=== PATIENT | male | born 1950 | race Caucasian/White ===

== ENCOUNTER 2020-05-24 02:39 | Emergency (ER) | payer MEDICARE ==
[2020-05-24 03:10] LABS: #Basophils 0.1 thou/uL (0.0-0.2); #Eosinphils 0.1 thou/uL (0.0-0.7); #Lymphocytes 0.7 thou/uL (1.20-3.40); #Monocytes 0.5 thou/uL (0.11-0.59); #Neutrophils 5.5 thou/uL (1.40-6.50); %Basophils 0.9 % (0.0-1.0); %Eosinophils 1.2 % (0.0-10.0); %Lymphocytes 10.5 % (21.0-51.0); %Monocytes 7.5 % (0.0-10.0); Hemoglobin 15.7 g/dL (14.0-18.0); Mean Corpuscular HGB CONC 33.8 g/dL (32.0-36.0); Mean Corpuscular Hemoglobin 33.2 pg (27.0-31.0); Mean Corpuscular Volume 98.2 fL (78.0-98.0); Mean Platelet Volume 7.2 fL (7.4-10.4); Platelet Count 248 thou/uL (130-400); RBC Distribution Width 12.2 % (11.5-14.5); Red Blood Cell (RBC) Count 4.74 mill/uL (4.70-6.10); White Blood Cell (WBC) Count 6.8 thou/uL (4.8-10.8)
[2020-05-24 03:29] LABS: ALT (SGPT) 9 U/L (8-55); AST (SGOT) 17 U/L (5-34); Albumin 4.2 g/dL (3.4-4.8); Alkaline Phosphatase 56 U/L (40-110); Anion Gap 17 mmol/L (10-20); BUN (Urea Nitrogen) 14 mg/dL (8.4-25.7); Bilirubin, Total 0.3 mg/dL (0.2-1.2); Calc. Creatinine Clearance 0 mL/min (70-130); Calcium 9.5 mg/dL (7.8-10.44); Carbon Dioxide 24 mmol/L (23-31); Chloride 102 mmol/L (98-107); Estimated GFR-MDRD 87; Globulin 2.6 g/dL (2.4-3.5); Glucose 114 mg/dL (83-110); Protein, Total 6.8 g/dL (5.8-8.1); Sodium 139 mmol/L (136-145)
--- NOTE | 2020-05-24 09:12 | CT ---
PRELIMINARY REPORT/[facility]/EMERGENCY AFTER HOURS PROCEDURE: EXAM: CT Abdomen and Pelvis with Intravenous Contrast CLINICAL HISTORY: 70-year-old male presents ED for evaluation of acute worsening of swelling and pain to a known right inguinal hernia that is been present for the last several years. Patient states that he noticed that his swelling was increasing starting 4 days ago but pain became severe acutely tonight and awoke him from sleep. Patient has seen general surgery for his hernia but no surgery was recommended at that ti sd (several years prior). PT STATES HAVING FOOD POISONING THE OTHER DAY AND THINKS VOMITING MAY HAVE IRRIATED THE HERNIA TECHNIQUE: Axial computed tomography images of the abdomen and pelvis with intravenous contrast. CONTRAST: With; ISOVUE 370, 90ML COMPARISON: None provided. FINDINGS: LUNG BASES: No basilar airspace consolidation or pleural effusion. LIVER: Unremarkable. GALLBLADDER AND BILE DUCTS: Unremarkable. No calcified stone. No ductal dilation. PANCREAS: Unremarkable. SPLEEN: Unremarkable. ADRENAL GLANDS: Unremarkable. KIDNEYS, URETERS, AND BLADDER: Unremarkable. No hydronephrosis or nephrolithiasis. No ureteral or bladder calculi. STOMACH AND BOWEL: Large right inguinal hernia containing the cecum and terminal ileum. The distal ileum is fluid-filled and measures up to 2.6 cm however there is no significant proximal dilatation to the distal ileum. N o definite obstruction at time of examination. Mild mural thickening of the proximal ascending colon which is under distended, limiting evaluation. APPENDIX: No CT evidence for appendicitis. PERITONEUM: No free fluid. No free air. LYMPH NODES: No lymphadenopathy. REPRODUCTIVE: Unremarkable as visualized. VASCULATURE: Scattered atherosclerotic calcifications of the aorta. BONES: Grade 1 anterolisthesis of L5 on S1 with bilateral L5 spondylolysis. Mild degenerative changes of the remainder of the lumbar spine. ABDOMINAL WALL AND SOFT TISSUES: See above. Small left fat-containing hernia. IMPRESSION: Large right inguinal hernia containing the cecum and terminal ileum. The distal ileum is fluid-filled and measures up to 2.6 cm however there is no significant proximal dilatation to the distal ileum. N o definite obstruction at time of examination. Mild mural thickening of the proximal ascending colon which is under distended, limiting evaluation. ELECTRONICALLY SIGNED BY: Nyla Bob MD May 24, 2020 3:55:27 AM CDT This report is intended for review by the ordering physician only, in accordance of law. If you recei ve this report in error, please call [facility] at [phone]. FINAL REPORT: CT ABDOMEN AND PELVIS WITH CONTRAST: I agree with the preliminary report provided. There is a right inguinal hernia containing the cecum and portions of the ascending colon with mild wall thickening involving the ascending colon and cecum which may reflect sequelae of mild strangulation. There is no overt upstream dilatation of the smal l bowel. Would recommend surgical consultation. There are bilateral hydroceles within the scrotal s ac. There are calcifications with a vas deferens likely seen in diabetic males. There are bilateral pars defects at L5 and grade I anterolisthesis. Other chronic findings as above. POS: BH
[2020-05-24] MEDS ORDERED: Iopamidol 370 76% 100 ML VIAL ONE (16:09)
== END 2020-05-24 04:30 | disposition home or self-care (01) ==
LOC: ERS 02:39
DX: K40.90 Unilateral inguinal hernia, without obstruction or gangrene, not specified as recurrent (principal); Z87.891 Personal history of nicotine dependence
CPT/HCPCS: 36415; 74177; 80053; 83605; 85025; Q9967

== ENCOUNTER 2020-06-02 05:56 | Outpatient (CLI) | payer MEDICARE, OTHER ==
[2020-06-03 14:46] LABS: SARS-CoV-2 MS2 Positive; SARS-CoV-2 N Gene Negative; SARS-CoV-2 S Gene Negative; SARS-CoV-2 by NAA Not Detected (NotDetected); SARS-CoV-2 orf1ab Negative
--- NOTE | 2020-06-05 15:37 | EKG ---
Test Reason : Blood Pressure : / mmHG Vent. Rate : 059 BPM Atrial Rate : 059 BPM P-R Int : 152 ms QRS Dur : 124 ms QT Int : 428 ms P-R-T Axes : 066 -17 038 degrees QTc Int : 423 ms Sinus bradycardia Right bundle branch block Abnormal ECG No previous ECGs available Confirmed by ZACHERY MEADOWS M.D. ([id number]) on 06/05/2020 3:37:28 PM Referred By: KENDALL Confirmed By:ZACHERY MEADOWS M.D.
== END 2020-06-02 05:57 | disposition home or self-care (01) ==
LOC: LABBT 05:56
PROVIDERS: ATTEND Specialist
DX: Z01.818 Encounter for other preprocedural examination (principal); K40.90 Unilateral inguinal hernia, without obstruction or gangrene, not specified as recurrent; Z20.828 Contact with and (suspected) exposure to other viral communicable diseases
CPT/HCPCS: 93005; U0003; 87635; 93010

== ENCOUNTER 2020-06-07 07:05 | Day surgery (SDC) | payer MEDICARE ==
[2020-06-02 15:51] VITALS: BMI 24.3
--- NOTE | 2020-06-06 06:45 | HP ---
HISTORY OF PRESENT ILLNESS: Baljeet Hanna, a 70-year-old male patient, who lives in [facility]. Recently lost his to both breast and lung cancer. 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 He has experienced a right inguinal hernia over the past 2 to 3 years. He recently presented to the emergency room and had a CAT scan that was unremarkable except for this right inguinal hernia. Laboratories are normal. EKG was not performed. SOCIAL HISTORY: Tobacco cessation yrs ago ALLERGIES: NONE. MEDICATIONS: Lisinopril. PAST SURGICAL HISTORY: Right arm skin and subcutaneous tissue for benign tumor removal and dental surgery. PAST MEDICAL HISTORY: Hypertension. REVIEW OF SYSTEMS: Ten-point noncontributory. The patient has never had a colonoscopy. Review of systems, noncontributory otherwise. FAMILY HISTORY: Diabetes. No malignancy. PHYSICAL EXAMINATION: VITAL SIGNS: 148/67, 62, and 97.5 degrees. 153 pounds, 65 inches, and 25 BMI. HEAD, EARS, EYES, NOSE: Unremarkable. LUNGS: Clear to auscultation. CARDIAC: Regular rate and rhythm without murmur or gallop. ABDOMEN: Soft and nontender. EXTREMITIES: Without edema. Palpable pedal pulses. Right groin reveals a large hernia on standing, enlarges with Valsalva. Left groin without evident hernia. Testicles are normal. ASSESSMENT AND PLAN: Right inguinal hernia. PLAN: Robot mesh repair outpatient. He understands risks and benefits. He will wear scrotal support postoperatively. He will refrain from lifting 25 pounds one week postoperatively and hopefully can return to work two weeks postoperatively or at least between one and two weeks. It was explained that he will have some induration and swelling of his cord structures, but this should improve with time. Job ID: [id number] [facility]
[2020-06-07] MEDS ORDERED: Ketorolac Tromethamine 30 MG/ML VIAL ONE (08:01)
[2020-06-07] MEDS ORDERED: Acetaminophen 500 MG TAB ONE (08:01)
[2020-06-07] MEDS ORDERED: Gabapentin 300 MG CAP ONE (08:01)
[2020-06-07] MEDS ORDERED: Lidocaine 1% w/Epinephrine 1:100K 20 ML VIAL ONE (08:30)
[2020-06-07] MEDS ORDERED: Bupivacaine PF 0.5% 30 ML VIAL ONE (08:30)
[2020-06-07] MEDS ORDERED: Fentanyl 250 MCG/5 ML VIAL ONE (09:50)
[2020-06-07] MEDS ORDERED: Fentanyl 100 MCG/2 ML VIAL ONE ×2 (11:55→12:11)
[2020-06-07] MEDS ORDERED: HYDROcodone/Acetaminophen 5/325 mg Tablet ONE ×2 (14:12→20:24)
[2020-06-07] MEDS ORDERED: Glycopyrrolate 0.2 MG/ML 5 ML SYRINGE ONE (15:17)
[2020-06-07] MEDS ORDERED: Ondansetron PF 4 MG/2 ML Vial ONE (15:17)
[2020-06-07] MEDS ORDERED: Dexamethasone 20 MG/5 ML VIAL ONE (15:17)
[2020-06-07] MEDS ORDERED: Esmolol 100 MG/10 ML VIAL ONE (15:17)
[2020-06-07] MEDS ORDERED: PROPOFOL 200 MG/20 ML VIAL ONE (15:17)
[2020-06-07] MEDS ORDERED: Rocuronium Bromide 10 MG/ML (10ML VIAL) ONE (15:17)
[2020-06-07] MEDS ORDERED: Lidocaine 1% PF 5 ML VIAL ONE (15:17)
--- NOTE | 2020-06-07 16:11 | OP ---
DATE OF PROCEDURE: 06/07/2020 PREOPERATIVE DIAGNOSIS: Right inguinal hernia, indirect. POSTOPERATIVE DIAGNOSIS: Right inguinal hernia, indirect. PROCEDURE PERFORMED: Laparoscopic/robotic repair of right inguinal hernia, 3DMax Bard mesh repair, large, right. ANESTHESIA: General, local 0.5% Marcaine 30 mL mixed with 1% Xylocaine with epinephrine 20 mL. DESCRIPTION OF PROCEDURE: The patient was taken to the operating room, where under general anesthesia, abdomen was prepared with ChloraPrep and draped in routine fashion. Yanez catheter placed at the beginning of procedure and removed at the end. Robot was docked, and robot hernia repair undertaken. This was performed after left paramedian supraumbilical incision made and pneumoperitoneum to 15 mmHg was obtained with a Veress needle, replacing with 11 mm balloon port. Bilateral lateral abdominal incision was made above the umbilical level and 8 mm ports placed. Once the robot was docked, then a peritoneal flap dissected free using the hot cautery and hot scissors from the anterior superior iliac spine to the midline. Peritoneal flap dissected free, visualizing the Venkat ligament medially and flap dissected free laterally and a large hernia sac containing small bowel and colon reduced and peritoneal sac dissected free from the cord structures gaining hemostasis with cautery, preserving the cord structures. Once the hernia sac was completely dissected free, 3D Bard Max large right mesh obtained and placed over the inguinal canal, secured to Venkat ligament with 2-0 Vicryl, anterior abdominal wall to the lateral aspect of the inferior epigastric vessels, which were preserved, 2-0 Vicryl was used. Once this was properly positioned and secured, the peritoneal flap closed with continuous suture of 3-0 V-Loc suture. Once this was completed, the hernia sac inspected and noted to be without defect. Small bowel was without injury. Good hernia repair appreciated. Pneumoperitoneum reduced. All instruments were removed, and left paramedian anterior rectus fascia was approximated with 0 Vicryl, UR needle. All skin incisions were approximated with subdermal 4-0 Monocryl and [place] glue applied. The patient tolerated the procedure well. Job ID: [id number]
[2020-06-07] MEDS ORDERED: Tamsulosin HCl 0.4 MG CAP ONE (20:14)
== END 2020-06-07 20:45 | disposition home or self-care (01) ==
LOC: SDC 07:05
PROVIDERS: ATTEND Specialist
PROC: 0YU54JZ Supplement Right Inguinal Region with Synthetic Substitute, Percutaneous Endoscopic Approach (ICD-10-PCS; principal; 2020-06-07)
DX: K40.90 Unilateral inguinal hernia, without obstruction or gangrene, not specified as recurrent (principal); I10 Essential (primary) hypertension; Z87.891 Personal history of nicotine dependence; Z79.899 Other long term (current) drug therapy
CPT/HCPCS: C1781; J0690; J1100; J1885; J2405; J2704; J3010; S0020